=== PATIENT | male | born 1970 | race Two or more races ===

== ENCOUNTER 2016-12-30 20:35 | Emergency (ER) | payer SELFPAY ==
[~2016-12-30] VITALS: Ht 185.4 cm; Wt 97.5 kg
[2016-12-30] MEDS ORDERED: LIDOCAINE 1% HCL (LOCAL ANESTH.) INJ 20ML MDV ONE (22:11)
[2016-12-30] MEDS ORDERED: BACITRACIN TOP OINT 1 UD PKG TOP ONE ×3 (22:23→23:45)
[2016-12-30] MEDS ORDERED: BUPIVACAINE 0.25% INJ 50ML VIAL ONE (22:27)
[2016-12-30] MEDS ORDERED: BUPIVACAINE HCL 0 ML ONE (22:28)
[2016-12-30] MEDS ORDERED: NEOMYCIN-BACITRACIN-POLYM UNITDOSE PKG TOP OINT TOP ONE (22:30)
[2016-12-30] MEDS ORDERED: SODIUM CHLORIDE 0.9% 1,000 ML IV ONE (22:30)
[2016-12-30] MEDS ORDERED: BUPIVACAINE 0.25% INJ 50ML VIAL ID ONE (22:30)
[2016-12-30] MEDS ORDERED: HYDROmorphone HCL 2 MG/ML VL IV ONE (22:30)
[2016-12-30] MEDS ORDERED: LIDOCAINE 1% HCL (LOCAL ANESTH.) INJ 20ML MDV ID ONE (22:30)
[2016-12-30] MEDS ORDERED: ceFAZolin 1GM/50ML D5W 100 ML IV ONE (22:30)
[2016-12-30] MEDS ORDERED: ONDANSETRON HCL 4 MG/2 ML VIAL IV ONE (22:30)
[2016-12-31 01:16] VITALS: BP 148/89
== END 2016-12-31 01:22 | disposition home or self-care (01) ==
LOC: ER 20:44
DX: S61.214A Laceration without foreign body of right ring finger without damage to nail, initial encounter (principal); S61.216A Laceration without foreign body of right little finger without damage to nail, initial encounter; S68.126A Partial traumatic metacarpophalangeal amputation of right little finger, initial encounter; F17.210 Nicotine dependence, cigarettes, uncomplicated; Z88.0 Allergy status to penicillin; W23.0XXA Caught, crushed, jammed, or pinched between moving objects, initial encounter; Y93.89 Activity, other specified; Y99.8 Other external cause status; Y92.89 Other specified places as the place of occurrence of the external cause
CPT/HCPCS: 12002; 94761; 96365; 96375; 99285; J0690; J1170; J2001; J2405; J3490; J7030